=== PATIENT | male | born 1985 | race Caucasian/White ===

== ENCOUNTER 2018-06-09 13:01 | Outpatient (CLI) | payer OTHER ==
--- NOTE | 2018-06-09 14:19 | RAD ---
2 VIEWS CHEST: Date: 06/09/18 COMPARISON: None HISTORY: Cough. FINDINGS: Two views of the chest show normal sized cardiomediastinal silhouette. There is no evidence of consol idation, mass, or pleural effusion. The bones are unremarkable. IMPRESSION: No evidence of acute cardiopulmonary disease. POS: [facility]
== END 2018-06-09 13:02 | disposition home or self-care (01) ==
LOC: RAD-FRANK 13:01
PROVIDERS: ATTEND Nurse Practitioner Family
DX: F17.200 Nicotine dependence, unspecified, uncomplicated (principal); R09.89 Other specified symptoms and signs involving the circulatory and respiratory systems; R05 Cough
CPT/HCPCS: 71046